=== PATIENT | female | born 1965 | race Caucasian/White ===

== ENCOUNTER 2022-12-13 19:13 | Emergency (ER) | payer OTHER ==
[~2022-12-13] VITALS: Ht 152.4 cm; Wt 93.0 kg
[~2022-12-13 19:13] MED LIST: BIOTIN1 M1 PO; BISOPROLOL-HCT1 EACH PO; ROSUVASTATIN CA10 MG PO; SYNTHROID,LEVO88 MCG PO; XANAX0.5 MG PO
== END 2022-12-13 23:45 | disposition home or self-care (01) ==
LOC: ED 19:13
DX: M25.552 Pain in left hip (principal); I10 Essential (primary) hypertension; E03.9 Hypothyroidism, unspecified; F41.9 Anxiety disorder, unspecified; E78.00 Pure hypercholesterolemia, unspecified; Z88.6 Allergy status to analgesic agent; Z88.8 Allergy status to other drugs, medicaments and biological substances; Z90.710 Acquired absence of both cervix and uterus; Z90.49 Acquired absence of other specified parts of digestive tract

== ENCOUNTER 2024-07-28 05:39 | Emergency (ER) | payer OTHER ==
[~2024-07-28] VITALS: Ht 152.4 cm; Wt 95.3 kg
[2024-07-28] MEDS ORDERED: Ketorolac Tromethamine 60 MG/2 ML VIAL IM ONE (06:05)
[2024-07-28] MEDS ORDERED: METHOCARBAMOL 750 MG TAB PO ONE (06:05)
[2024-07-28] MEDS ORDERED: METHOCARBAMOL750 M1 PO (06:07)
[2024-07-28] MEDS ORDERED: NAPROXEN250 MG PO (06:07)
== END 2024-07-28 06:16 | disposition home or self-care (01) ==
LOC: ED 05:39
DX: S39.012A Strain of muscle, fascia and tendon of lower back, initial encounter (principal); Z79.899 Other long term (current) drug therapy; Z88.6 Allergy status to analgesic agent; Z90.710 Acquired absence of both cervix and uterus; X58.XXXA Exposure to other specified factors, initial encounter; Y93.89 Activity, other specified; Y92.89 Other specified places as the place of occurrence of the external cause; Y99.8 Other external cause status